=== PATIENT | female | born 1965 | race Caucasian/White ===

== ENCOUNTER 2018-05-14 16:58 | Emergency (ER) | END 2018-05-14 19:49 | disposition home or self-care (01) ==

== ENCOUNTER 2018-12-21 11:59 | Day surgery (SDC) | payer OTHER ==
[~2018-12-21] VITALS: Ht 167.6 cm; Wt 79.7 kg
[2018-12-21 12:53] VITALS: Ht 167.6 cm; Wt 79.7 kg
[2018-12-21] MEDS ORDERED: HERBAL SUPPLEMENTS (13:14)
[2018-12-21] MEDS ORDERED: AMLODIPINE BESYLATE (13:14)
[2018-12-21 13:31] VITALS: BP 147/69; PULSE 75; RESP 24
--- NOTE | 2018-12-21 13:42 | PREAC ---
Date/Time of Note Date/Time of Note DATE: 12/21/18 TIME: 13:39 Anesthesia Eval and Record Evaluation Time Pre-Procedure Interview DATE: 12/21/18 TIME: 13:39 Age 53 Sex female NPO: 8 hrs (Dysphagia) Preoperative diagnosis Dysphagia, constipation Planned procedure EGD, Colonscopy Past Medical History Past Medical History: Includes Cardio: HTN, Dyslipidemia Musculoskeletal: Osteoarthritis Renal: CKD Hepatic: Alcohol abuse GI: Obesity Surgery & Anesthesia Issues No known issue Meds Anticoagulation: No Beta Clark within 24 hr: No Reason Beta Clark not given: Pt. not on B-Clark Reported Medications [Herbal Supplements] No Conflict Check 12/21/18 [Amlodipine Besylate] No Conflict Check 12/21/18 Meds reviewed: Yes Allergies Coded Allergies: No Known Allergy (Unverified , 12/21/18) Allergies Reviewed: Yes Labs/Studies Labs Reviewed: Reviewed by anesthesiologist test: Negative Studies: ECG Pre-procedure Exam Last vitals BP:112/67. P:78, spo2:100%, T:98,8 Airway: Adequate mouth opening, Adequate thyromental dist Mallampati: Mallampati III Teeth: Normal Lung: Normal Heart: Normal ASA Physical Status ASA physical status: 3 Emergency: None Planned Anesthetic General/MAC: MAC Planned Pain Management Parenteral pain med Pre-operative Attestations Prior to commencing anesthesia and surgery, the patient was re-evaluated, there was verification of: *The patient's identity *The results of appropriate recent lab work and preoperative vital signs *The above evaluation not changing prior to induction *Anesthetic plan, risk benefits, alternative and complications discussed with patient/family; questions answered; patient/family understands, accepts and wishes to proceed. GARCIA MARQUEZ MD Dec 21, 2018 13:42
[2018-12-21] MEDS ORDERED: LIDOCAINE 2% (SDV) 5 ML INJ ONE (13:43)
[2018-12-21] MEDS ORDERED: PROPOFOL 60 ML ONE (13:43)
--- NOTE | 2018-12-21 14:15 | PAC ---
Date/Time of Note Date/Time of Note DATE: 12/21/18 TIME: 14:14 Post-Anesthesia Notes Post-Anesthesia Note Last documented vital signs Vital Signs Date Temp Pulse Resp B/P (MAP) Pulse Ox O2 O2 Flow FiO2 Time Delivery Rate 12/21/18 97.8 75 24 147/69 98 Room Air 13:31 (95) Activity: WNL Respiratory function: WNL Cardiovascular function: WNL Mental status: Baseline Pain reasonably controlled: Yes Hydration appropriate: Yes Nausea/Vomiting absent: Yes Comments BP:136/67, P:89, spo2:100%, T:98,8 GARCIA MARQUEZ MD Dec 21, 2018 14:15
[2018-12-21] MEDS ORDERED: LABETALOL HCL 20MG INJ IV PRN (14:30)
[2018-12-21] MEDS ORDERED: ONDANSETRON 4 MG INJ IV PRN (14:30)
[2018-12-21] MEDS ORDERED: FENTAnyl 50 MCG/ML VIAL IV PRN (14:30)
[2018-12-21 14:42] VITALS: BP 154/82; PULSE 82; RESP 20
== END 2018-12-21 16:46 | disposition home or self-care (01) ==
LOC: GIL 11:59
PROVIDERS: ATTEND Internal Medicine Gastroenterology
DX: Z12.11 Encounter for screening for malignant neoplasm of colon (principal); K29.30 Chronic superficial gastritis without bleeding; K21.0 Gastro-esophageal reflux disease with esophagitis; K64.8 Other hemorrhoids; E78.00 Pure hypercholesterolemia, unspecified; I10 Essential (primary) hypertension
CPT/HCPCS: 43239; 45378; Z7610; 88305; 88312; 88313